=== PATIENT | female | born 1960 | race Hispanic/Latino ===

== ENCOUNTER 2017-03-02 22:26 | Emergency (ER) | payer MEDICAID ==
[2017-03-02 22:27] VITALS: BMI 30.2
[2017-03-03 00:28] VITALS: RESP 18
--- NOTE | 2017-03-03 00:39 | ED PDOC ---
Arrival/HPI <Mina Lovell - Last Filed: 03/03/17 03:45> - General Historian: Patient - History of Present Illness Time/Duration: > month Symptom Onset: Gradual Symptom Course: Unchanged Quality: Aching <Patricia Cheung - Last Filed: 03/03/17 04:51> - General Chief Complaint: Medical Clearance Time Seen by Provider: 03/03/17 00:21 - History of Present Illness Narrative History of Present Illness (Text): 03/03/17 00:42 56 yo F w h/o fibromyalgia presents to ER with 25-day h/o diffuse body aches and "another fibromyalgia flareup." Patient states she has been having diffuse body pain for the past 25 days, has had meds increased by her PMD, has been getting cortisone shots with minimal improvement. Patient c/o the hospital gown feeling like "a thousand pounds" on her body. She states "everything hurts" but denies CP, SOB, abd pain, n/v/d/c, fevers, chills, WEEMS, pleurisy, rashes, joint pains. Admits to diffuse body pain and inability sleep at night. She is speaking in full sentences and observed walking without difficulty. (Patricia Cheung) Past Medical History - Provider Review Nursing Documentation Reviewed: Yes - Travel History Have you recently traveled outside [place] w/in the past 3 mons?: No - Infectious Disease Hx of Infectious Diseases: None - Tetanus Immunization Tetanus Immunization: Unknown - Reproductive Menopause: Yes - Cardiac Hx Cardiac Disorders: No Hx Pacemaker: No - Pulmonary Hx Respiratory Disorders: Yes Hx Asthma: Yes Hx Bronchitis: Yes Hx Chronic Obstructive Pulmonary Disease (COPD): Yes Hx Emphysema: Yes - Neurological Hx Migraine: Yes Hx Paralysis: No Other/Comment: fibromyalgia - HEENT Hx Blind: Yes (right eye prosthesis) - Renal Hx Kidney Stones: Yes - Endocrine/Metabolic Hx Endocrine Disorders: Yes Other/Comment: fibromyalgia - Hematological/Oncological Hx Blood Disorders: No Hx Blood Transfusions: No Hx Blood Transfusion Reaction: No - Integumentary Hx Dermatological Disorder: No - Musculoskeletal/Rheumatological Hx Musculoskeletal Disorders: Yes - Gastrointestinal Hx Gastrointestinal Disorders: Yes (colitis) Hx Diverticulitis: Yes - Genitourinary/Gynecological Other/Comment: r lumpectomy 2007 - Psychiatric Hx Anxiety: Yes Hx Emotional Abuse: No Hx Physical Abuse: No Hx Substance Use: Yes (PAST ABUSE(RECOVERING X 18 YRS)) - Surgical History Hx Appendectomy: Yes Hx Cholecystectomy: Yes Hx Orthopedic Surgery: Yes - Anesthesia Hx Anesthesia Reactions: Yes (difficulty waking) Hx Malignant Hyperthermia: No - Suicidal Assessment Feels Threatened In Home Enviroment: No <Patricia Cheung - Last Filed: 03/03/17 04:51> Family/Social History - Physician Review Nursing Documentation Reviewed: Yes Family/Social History: CVA/TIA, Diabetes, Hypertension, CAD/SD Smoking Status: Former Smoker Hx Alcohol Use: Yes (PAST ETOH(RECOVERING X 18 YRS)) Hx Substance Use: Yes (PAST ABUSE(RECOVERING X 18 YRS)) Hx Substance Use Treatment: No <Patricia Cheung - Last Filed: 03/03/17 04:51> Allergies/Home Meds <Mina Lovell - Last Filed: 03/03/17 03:45> <Patricia Cheung - Last Filed: 03/03/17 04:51> Allergies/Adverse Reactions: Allergies aspirin Allergy (Severe, Verified 03/03/17 00:26) GI BLEED PT STATES NO ALLERGY TO PERCOCET-THIS WAS HER DRUG OF CHOICE WHEN SHE WAS USING AND WILL NOT TAKE THIS MED. bupropion HCl [From Wellbutrin] Allergy (Severe, Verified 03/03/17 00:26) ANAPHYLAXIS coconut Allergy (Severe, Verified 03/03/17 00:26) ANAPHYLAXIS codeine Allergy (Severe, Verified 03/03/17 00:26) ANAPHYLAXIS latex Allergy (Severe, Verified 03/03/17 00:26) SWELLING lorazepam [From Ativan] Allergy (Severe, Verified 03/03/17 00:26) ANAPHYLAXIS hyperactivity/"JUST FEELS DIFFERENT" morphine Allergy (Severe, Verified 03/03/17 00:26) ANAPHYLAXIS Penicillins Allergy (Severe, Verified 03/03/17 00:26) SWELLING Sulfa (Sulfonamide Antibiotics) Allergy (Severe, Verified 03/03/17 00:26) ANAPHYLAXIS theophylline Allergy (Severe, Verified 03/03/17 00:26) ANAPHYLAXIS acetaminophen [From Percocet] Adverse Reaction (Verified 03/03/17 00:26) FATIGUE oxycodone HCl [From Percocet] Adverse Reaction (Verified 03/03/17 00:26) FATIGUE Home Medications: Home Meds Medication Instructions Recorded Confirmed Alprazolam [Xanax] 2 mg PO HS 05/25/16 03/03/17 Furosemide [Lasix] 40 mg PO BID 05/25/16 03/03/17 HYDROmorphone [Dilaudid] 8 mg PO QID 05/25/16 03/03/17 Albuterol HFA [Ventolin HFA 90 2 puff IH BID 10/14/16 10/19/16 mcg/actuation (8 g)] Mometasone/Formoterol [Dulera 100 2 puff IH BID 10/14/16 03/03/17 Mcg/5 Mcg Inhaler] Sertraline [Zoloft] 25 mg PO HS 03/03/17 03/03/17 Review of Systems - Physician Review All systems were reviewed & negative as marked: Yes - Review of Systems Constitutional: absent: Fatigue, Fevers Eyes: absent: Vision Changes, Photophobia, Eye Pain ENT: absent: Rhinorrhea Respiratory: absent: SOB, Cough, Sputum Cardiovascular: absent: Chest Pain, Palpitations, Edema, Calf Pain, WEEMS Gastrointestinal: absent: Abdominal Pain, Diarrhea, Nausea, Vomiting Genitourinary Female: absent: Dysuria, Frequency Musculoskeletal: Arthralgias, Myalgias Skin: absent: Rash, Skin Lesions Neurological: absent: Headache, Dizziness, Focal Weakness <Patricia Cheung - Last Filed: 03/03/17 04:51> Physical Exam Vital Signs Reviewed: Yes Temperature: Afebrile Blood Pressure: Hypertensive Pulse: Regular Respiratory Rate: Normal Appearance: Positive for: Well-Appearing, Non-Toxic, Comfortable Pain Distress: None Mental Status: Positive for: Alert and Oriented X 3 - Systems Exam Head: Present: Atraumatic, Normocephalic Pupils: Present: Other (right eye prosthesis) Conjunctiva: No: Icteric Mouth: Present: Moist Mucous Membranes Neck: Present: Normal Range of Motion. No: Meningeal Signs, JVD Respiratory/Chest: Present: Clear to Auscultation, Good Air Exchange. No: Respiratory Distress, Accessory Muscle Use, Wheezes, Rhonchi Cardiovascular: Present: Regular Rate and Rhythm, Normal S1, S2. No: Murmurs Abdomen: Present: Normal Bowel Sounds. No: Tenderness, Distention, Peritoneal Signs, Rebound, Guarding Back: Present: Normal Inspection. No: CVA Tenderness, Midline Tenderness, Paraspinal Tenderness Upper Extremity: Present: Normal Inspection. No: Cyanosis, Edema Lower Extremity: Present: Normal Inspection. No: Edema, CALF TENDERNESS, Cyanosis Neurological: Present: GCS=15, CN II-XII Intact, Speech Normal, Gait Normal Skin: Present: Warm, Dry, Normal Color. No: Rashes, Diaphoretic Psychiatric: Present: Alert, Oriented x 3, Other (drug-seeking behavior) <Patricia Cheung - Last Filed: 03/03/17 04:51> Vital Signs Temp Pulse Resp BP Pulse Ox 03/03/17 04:19 97.7 F 81 18 146/81 98 03/03/17 00:27 97.4 F L 76 18 159/90 H 99 Medical Decision Making <Mina Lovell - Last Filed: 03/03/17 03:45> Re-evaluation Time: 03:50 Reassessment Condition: Improved <Patricia Cheung - Last Filed: 03/03/17 04:51> ED Course and Treatment: Impression: Pt seen and evaluated with medical care evaluation specialist. Pt, whose past medical history inclydes fibromyalgia, presented for difusse body aches with associated discomfort. Aware and agree with HPI, clinical findings, plan, and management. Differential Diagnosis include but are not limited to: Plan: -- Toradol -- Tylenol -- Reassess and disposition Progress Notes: (Mina Lovell) 03/03/17 00:53 56 yo F with h/o fibromyalgia presents with diffuse body aches and pain. PO tylenol. IM Toradol. 03/03/17 01:03 Patient refuses PO tylenol. Requests IV benadryl. Explained there is no clinical indication for Benadryl. Patient refuses PO Toradol, states "it's like tic tacs," agreeable to IM Toradol. 03/03/17 03:48 Patient states she is feeling slightly better. 03/03/17 04:35 Patient states she is feeling better, denies any specific complaints at this time. Discussed need to followup with PMD, continue home meds. Patient expresses understanding. 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 / has examined the patient and agrees with the treatment plan. <Mina Lovell - Last Filed: 03/03/17 03:45> Disposition/Present on Arrival <Mina Lovell - Last Filed: 03/03/17 03:45> - Present on Arrival Any Indicators Present on Arrival: No History of DVT/PE: No History of Uncontrolled Diabetes: No Urinary Catheter: No History of Decub. Ulcer: No History Surgical Site Infection Following: None - Disposition Have Diagnosis and Disposition been Completed?: Yes Disposition Time: 04:30 Patient Plan: Discharge <Patricia Cheung - Last Filed: 03/03/17 04:51> - Disposition Diagnosis: Fibromyalgia Disposition: HOME/ ROUTINE Patient Problems: Current Active Problems Problem Status Diagnosed Asthmatic bronchitis Acute Fibromyalgia Acute Joint pain Acute Condition: STABLE Discharge Instructions (ExitCare): Fibromyalgia (ED), Chronic Pain (ED) Print Language: [place] Additional Instructions: Please followup with your primary care physician in 1-3 days. Continue your home medications. Referrals: Juan Meier MD [Family Provider] - Follow up with primary
[2017-03-03 04:21] VITALS: BP 146/81; PULSE 81; TEMP 97.7; O2SAT 98
== END 2017-03-03 05:00 | disposition home or self-care (01) ==
LOC: ED 22:26 → MERGE 22:26 → ED 03-03 05:00
DX: M79.7 Fibromyalgia (principal)
CPT/HCPCS: 96372; 99282; J1885

== ENCOUNTER 2017-03-12 22:47 | Emergency (ER) | payer MEDICAID ==
[2017-03-12 22:47] VITALS: BMI 30.2
[2017-03-12 23:07] VITALS: TEMP 98
--- NOTE | 2017-03-12 23:13 | ED PDOC ---
Arrival/HPI - General Chief Complaint: Shortness Of Breath Time Seen by Provider: 03/12/17 22:49 Historian: Patient - History of Present Illness Narrative History of Present Illness (Text): 03/12/17 23:13 Debi Matute is a 56 year old female, whose past medical history includes COPD, substance abuse, asthma, emphysema, migraines, and fibromyalgia, who presents to the Emergency department complaining of bilateral lower extremity swelling for the past 3 days. Patient states she regularly takes Lasix. Patient also reports shortness of breath since 17:30 tonight. Patient denies any fever, chills, chest pain, nausea, vomiting, diarrhea, urinary symptoms, back pain, neck pain, headache, dizziness, or any other complaints. Symptom Onset: Gradual Symptom Course: Unchanged Activities at Onset: Rest, Light Modifying Factors (Text): none Context: Home Past Medical History - Provider Review Nursing Documentation Reviewed: Yes - Infectious Disease Hx of Infectious Diseases: None - Tetanus Immunization Tetanus Immunization: Unknown - Cardiac Hx Cardiac Disorders: No Hx Pacemaker: No - Pulmonary Hx Respiratory Disorders: Yes Hx Asthma: Yes Hx Bronchitis: Yes Hx Chronic Obstructive Pulmonary Disease (COPD): Yes Hx Emphysema: Yes - Neurological Hx Migraine: Yes Hx Paralysis: No Other/Comment: fibromyalgia - HEENT Hx Blind: Yes (right eye prosthesis) - Renal Hx Kidney Stones: Yes - Endocrine/Metabolic Hx Endocrine Disorders: Yes Other/Comment: fibromyalgia - Hematological/Oncological Hx Blood Disorders: No Hx Blood Transfusions: No Hx Blood Transfusion Reaction: No - Integumentary Hx Dermatological Disorder: No - Musculoskeletal/Rheumatological Hx Musculoskeletal Disorders: Yes - Gastrointestinal Hx Gastrointestinal Disorders: Yes (colitis) Hx Diverticulitis: Yes - Genitourinary/Gynecological Other/Comment: r lumpectomy 2006 - Psychiatric Hx Anxiety: Yes Hx Emotional Abuse: No Hx Physical Abuse: No Hx Substance Use: Yes (PAST ABUSE(RECOVERING X 18 YRS)) - Surgical History Hx Appendectomy: Yes Hx Cholecystectomy: Yes Hx Orthopedic Surgery: Yes - Anesthesia Hx Anesthesia Reactions: Yes (difficulty waking) Hx Malignant Hyperthermia: No - Suicidal Assessment Feels Threatened In Home Enviroment: No Family/Social History - Physician Review Nursing Documentation Reviewed: Yes Family/Social History: No Known Family HX Smoking Status: Former Smoker Hx Alcohol Use: Yes (PAST ETOH(RECOVERING X 18 YRS)) Hx Substance Use: Yes (PAST ABUSE(RECOVERING X 18 YRS)) Hx Substance Use Treatment: No Allergies/Home Meds Allergies/Adverse Reactions: Allergies aspirin Allergy (Severe, Verified 03/03/17 00:26) GI BLEED PT STATES NO ALLERGY TO PERCOCET-THIS WAS HER DRUG OF CHOICE WHEN SHE WAS USING AND WILL NOT TAKE THIS MED. bupropion HCl [From Wellbutrin] Allergy (Severe, Verified 03/03/17 00:26) ANAPHYLAXIS coconut Allergy (Severe, Verified 03/03/17 00:26) ANAPHYLAXIS codeine Allergy (Severe, Verified 03/03/17 00:26) ANAPHYLAXIS latex Allergy (Severe, Verified 03/03/17 00:26) SWELLING lorazepam [From Ativan] Allergy (Severe, Verified 03/03/17 00:26) ANAPHYLAXIS hyperactivity/"JUST FEELS DIFFERENT" morphine Allergy (Severe, Verified 03/03/17 00:26) ANAPHYLAXIS Penicillins Allergy (Severe, Verified 03/03/17 00:26) SWELLING Sulfa (Sulfonamide Antibiotics) Allergy (Severe, Verified 03/03/17 00:26) ANAPHYLAXIS theophylline Allergy (Severe, Verified 03/03/17 00:26) ANAPHYLAXIS acetaminophen [From Percocet] Adverse Reaction (Verified 03/03/17 00:26) FATIGUE oxycodone HCl [From Percocet] Adverse Reaction (Verified 03/03/17 00:26) FATIGUE Home Medications: Home Meds Medication Instructions Recorded Confirmed Alprazolam [Xanax] 2 mg PO HS 05/25/16 03/03/17 Furosemide [Lasix] 40 mg PO BID 05/25/16 03/03/17 HYDROmorphone [Dilaudid] 8 mg PO QID 05/25/16 03/03/17 Albuterol HFA [Ventolin HFA 90 2 puff IH BID 10/14/16 10/19/16 mcg/actuation (8 g)] Mometasone/Formoterol [Dulera 100 2 puff IH BID 10/14/16 03/03/17 Mcg/5 Mcg Inhaler] Sertraline [Zoloft] 25 mg PO HS 03/03/17 03/03/17 Review of Systems - Physician Review All systems were reviewed & negative as marked: Yes - Review of Systems Constitutional: Normal. absent: Fevers Eyes: Normal ENT: Normal Respiratory: SOB Cardiovascular: Normal. absent: Chest Pain Gastrointestinal: Normal. absent: Abdominal Pain, Diarrhea, Nausea, Vomiting Genitourinary Female: Normal. absent: Dysuria, Frequency, Hematuria, Urine Output Changes Musculoskeletal: Other (+bilateral lower extremity swelling). absent: Back Pain , Neck Pain Skin: Normal. absent: Rash Neurological: Normal. absent: Headache, Dizziness Endocrine: Normal Hemo/Lymphatic: Normal Psychiatric: Normal Physical Exam Vital Signs Reviewed: Yes Vital Signs Temp Pulse Resp BP Pulse Ox 03/13/17 01:09 83 16 123/86 97 03/12/17 23:50 87 18 135/87 97 03/12/17 23:20 18 95 03/12/17 23:06 98 F 90 16 141/91 H 97 Temperature: Afebrile Blood Pressure: Normal Pulse: Regular Respiratory Rate: Normal Appearance: Positive for: Well-Appearing, Non-Toxic, Comfortable Pain Distress: None Mental Status: Positive for: Alert and Oriented X 3 - Systems Exam Head: Present: Atraumatic, Normocephalic Pupils: Present: PERRL Extroacular Muscles: Present: EOMI Conjunctiva: Present: Normal Mouth: Present: Moist Mucous Membranes Pharnyx: Present: Normal Neck: Present: Normal Range of Motion Respiratory/Chest: Present: Good Air Exchange, Wheezes. No: Respiratory Distress, Accessory Muscle Use Cardiovascular: Present: Regular Rate and Rhythm, Normal S1, S2. No: Murmurs Abdomen: Present: Normal Bowel Sounds. No: Tenderness, Distention, Peritoneal Signs Back: Present: Normal Inspection Upper Extremity: Present: Normal Inspection. No: Cyanosis, Edema Lower Extremity: Present: Normal Inspection. No: Edema Neurological: Present: GCS=15, CN II-XII Intact, Speech Normal, Motor Func Grossly Intact, Normal Sensory Function Skin: Present: Warm, Dry, Normal Color. No: Rashes Psychiatric: Present: Alert, Oriented x 3, Normal Insight, Normal Concentration Medical Decision Making ED Course and Treatment: 03/12/17 23:13 Impression: 56 year old female complaining of bilateral lower extremity swelling and shortness of breath Plan: -- EKG -- Chest X-ray -- Labs, cardiac enzymes, BNP -- US Duplex Lower Extremities -- Duoneb -- Reassess and disposition Prior Visits: Notes and results from previous visits were reviewed. Progress Notes: Reviewed EKG, NSR at [address]pm[address] Non-specific ST/T wave changes. 03/13/17 00:36 Reviewed sono, US Duplex Lower Extremities show no evidence of DVT. 03/13/17 00:48 Reviewed radiology, Chest X-ray shows no active disease. Labs within normal limits. 03/13/17 00:59 On re-evaluation, the patient feels better and is in no acute distress. I have discussed the results and plan with the patient, who expresses understanding. Patient in agreement with plan to discharged home. Patient is stable for discharge. Patient was instructed to follow up with physician/clinic in 1-2 days or return if symptoms worsen or new concerning symptoms arise. - Lab Interpretations Lab Results: 03/12/17 23:20 03/12/17 23:20 Lab Results 03/12/17 23:20: WBC 5.7, RBC 3.85, Hgb 11.8 L, Hct 34.9 L, MCV 90.6, MCH 30.6, MCHC 33.8, RDW 12.6, Plt Count 221, MPV 10.6 03/12/17 23:20: Sodium 138, Potassium 3.6, Chloride 102, Carbon Dioxide 27, Anion Gap 13, BUN 18, Creatinine 0.9, Est GFR ( Amer) > 60, Est GFR (Non- Af Amer) > 60, Random Glucose 96, Calcium 8.8, Total Bilirubin 0.5, AST 63 H, ALT 74 H, Alkaline Phosphatase 96, Lactate Dehydrogenase 505, Total Creatine Kinase 104, Troponin I < 0.01, NT-Pro-B Natriuret Pep 66.6, Total Protein 6.9, Albumin 3.8, Globulin 3.0, Albumin/Globulin Ratio 1.3 03/12/17 23:20: PT 10.2, INR 0.94, APTT 28.7 I have reviewed the lab results: Yes - RAD Interpretation Radiology Orders: 03/12/17 23:14 CHEST PORTABLE [RAD] Stat 03/12/17 23:24 DUPLEX LOWER EXTRM VEIN BILAT [US] Stat Land Commissioner: ED Physician - EKG Interpretation Interpreted by ED Physician: Yes Type: 12 lead EKG - Medication Orders Current Medication Orders: Discontinued Medications Albuterol/Ipratropium (Duoneb 3 Mg/0.5 Mg (3 Ml) Ud) 3 ml IH ONCE STA Stop: 03/12/17 23:16 Last Admin: 03/12/17 23:17 Dose: 3 ml Furosemide (Lasix) 20 mg IVP ONCE ONE Stop: 03/13/17 00:58 Potassium Chloride (Potassium Chloride Oral Soln) 20 meq PO STAT STA Stop: 03/13/17 01:10 - Scribe Statement The provider has reviewed the documentation as recorded by the Joseline Campa Provider Attestation: All medical record entries made by the Ellaibe were at my direction and personally dictated by me. I have reviewed the chart and agree that the record accurately reflects my personal performance of the history, physical exam, medical decision making, and the department course for this patient. I have also personally directed, reviewed, and agree with the discharge instructions and disposition. Disposition/Present on Arrival - Present on Arrival Any Indicators Present on Arrival: No History of DVT/PE: No History of Uncontrolled Diabetes: No Urinary Catheter: No History of Decub. Ulcer: No History Surgical Site Infection Following: None - Disposition Have Diagnosis and Disposition been Completed?: Yes Diagnosis: COPD (chronic obstructive pulmonary disease) Disposition: HOME/ ROUTINE Disposition Time: 00:59 Patient Plan: Discharge Patient Problems: Current Active Problems Problem Status Onset COPD (chronic obstructive pulmonary disease) Acute Condition: GOOD Additional Instructions: Take meds as prescribed/follow up with your doctor this week Prescriptions: predniSONE [Prednisone] 40 mg PO DAILY #10 tab Albuterol HFA [Ventolin HFA 90 mcg/actuation (8 g)] 2 puff IH [id number] PRN #1 puff PRN Reason: Wheezing Referrals: Juan Meier MD [Primary Care Provider] - Follow up with primary
[2017-03-12] MEDS ORDERED: Albuterol-Ipratrop 3 mg / 0.5 (3 ml) UD IH STA (23:15)
[2017-03-12 23:33] LABS: HEMATOCRIT 34.9 % (36.0-48.0); MEAN CELL VOLUME 90.6 fL (80.0-105.0); MEAN CORPUSCULAR HEMOGLOBIN 30.6 pg (25.0-35.0); MEAN CORPUSCULAR HGB CONC 33.8 g/dl (31.0-37.0); MEAN PLATELET VOLUME 10.6 fl (7.0-11.0); RED CELL DISTRIBUTION WIDTH 12.6 % (11.5-14.5); WHITE BLOOD COUNT 5.7 10^3/ul (4.5-11.0)
[2017-03-12 23:43] LABS: ALB/GLOB RATIO 1.3 (1.1-1.8); ALKALINE PHOSPHATASE 96 U/L (38-133); ALT/SGPT 74 U/L (7-56); AST/SGOT 63 U/L (15-39); BILIRUBIN,TOTAL 0.5 mg/dL (0.2-1.3); BLOOD UREA NITROGEN 18 mg/dL (7-21); CALCIUM 8.8 mg/dL (8.4-10.5); CARBON DIOXIDE 27 mmol/L (21-33); CHLORIDE 102 mmol/L (98-107); GFR AFRICAN-AMERICAN > 60; GLUCOSE,RANDOM 96 mg/dL (70-110); INR 0.94 (0.93-1.08); PARTIAL THROMBOPLASTIN TIME 28.7 Seconds (23.7-30.8); POTASSIUM 3.6 mmol/L (3.6-5.0); SODIUM 138 mmol/L (132-148); TOTAL PROTEIN 6.9 g/dL (5.8-8.3)
[2017-03-12 23:55] LABS: TROPONIN I < 0.01 ng/mL
[2017-03-13 00:50] VITALS: O2SAT 97
[2017-03-13] MEDS ORDERED: Potassium Chloride 20 mEq ER Tab PO STA (00:58)
[2017-03-13 01:09] VITALS: BP 123/86; PULSE 83; RESP 16
[2017-03-13] MEDS ORDERED: Potassium Chloride 20 mEq/15 ml LIQ UD PO STA (01:09)
--- NOTE | 2017-03-13 13:32 | CARD ---
APPROVED REPORT EKG Measurement Heart [id number] <Conclusion> Normal sinus rhythm RSR' or QR pattern in V1 suggests right ventricular conduction delay Borderline ECG
--- NOTE | 2017-03-13 16:49 | RAD ---
HISTORY: sob COMPARISON: 11/27/2016 FINDINGS: LUNGS: Poor inspiration with low lung volumes, crowded bronchovascular markings and mild bibasilar atelectasis PLEURA: No significant pleural effusion identified, no pneumothorax apparent. CARDIOVASCULAR: Mild cardiomegaly. OSSEOUS STRUCTURES: No significant abnormalities. VISUALIZED UPPER ABDOMEN: Normal. OTHER FINDINGS: No change right IJ central line. IMPRESSION: Poor inspiration with low lung volumes, crowded bronchovascular markings and mild bibasilar atelectasis
--- NOTE | 2017-03-15 08:22 | US ---
HISTORY: Leg pain and swelling. Evaluate for DVT PHYSICIAN(S): Art Fontenot MD. TECHNIQUE: Duplex sonography and color-flow Doppler with graded compression were used to evaluate the deep venous systems of both lower extremities. FINDINGS: The visualized deep venous systems of both lower extremities are sonographically normal and compressible. Normal wave forms and augmentation are seen. There is no sonographic evidence for deep venous thrombosis in the visualized segments of both lower extremities. IMPRESSION: No sonographic evidence for deep venous thrombosis in the visualized segments of both lower extremities.
== END 2017-03-13 01:36 | disposition home or self-care (01) ==
LOC: ED 22:47 → MERGE 22:47 → ED 03-13 01:36
DX: J44.9 Chronic obstructive pulmonary disease, unspecified (principal); M79.7 Fibromyalgia; Z87.891 Personal history of nicotine dependence
CPT/HCPCS: 71010; 80053; 82550; 83615; 83880; 84484; 85027; 85610; 85730; 93005; 93970; 96374; 99284; J1940

== ENCOUNTER 2017-05-23 10:16 | Emergency (ER) | payer MEDICAID ==
[2017-05-23 10:18] VITALS: BMI 30.2
[2017-05-23 10:24] VITALS: TEMP 97.9; O2SAT 99
[2017-05-23] MEDS ORDERED: Sodium Chloride 0.9% 1,000 ML IV STA (11:08)
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
[2017-05-23 11:32] LABS: BASO # 0.01 K/mm3 (0.0-2.0); BASO % 0.2 % (0.0-3.0); EOS # 0.1 (0.0-0.7); GRAN # 2.67 (1.4-6.5); GRAN % 54.1 % (50.0-68.0); HEMOGLOBIN 12.7 gm/dL (12.0-16.0); LYMPH # 1.6 (1.2-3.4); MEAN CELL VOLUME 89.9 fL (80.0-105.0); MEAN CORPUSCULAR HEMOGLOBIN 30.5 pg (25.0-35.0); MEAN CORPUSCULAR HGB CONC 33.9 g/dl (31.0-37.0); MEAN PLATELET VOLUME 10.5 fl (7.0-11.0); MONO # 0.6 (0.1-0.6); MONO % 11.7 % (1.0-6.0); PLATELET COUNT 226 10^3/uL (120.0-450.0); RBC 4.17 10^6/uL (3.5-6.1); WHITE BLOOD COUNT 4.9 10^3/ul (4.5-11.0)
[2017-05-23 11:38] LABS: ALB/GLOB RATIO 1.3 (1.1-1.8); ALBUMIN 4.2 g/dL (3.0-4.8); ALT/SGPT 39 U/L (7-56); AST/SGOT 24 U/L (15-39); BLOOD UREA NITROGEN 15 mg/dL (7-21); GFR AFRICAN-AMERICAN > 60; GFR NON-AFRICAN AMERICAN > 60
--- NOTE | 2017-05-23 11:41 | RAD ---
HISTORY: cough, dyspnea COMPARISON: 05/14/2017 FINDINGS: LUNGS: No active pulmonary disease. PLEURA: No significant pleural effusion identified, no pneumothorax apparent. CARDIOVASCULAR: Normal. OSSEOUS STRUCTURES: No significant abnormalities. VISUALIZED UPPER ABDOMEN: Normal. OTHER FINDINGS: Right-sided Port-A-Cath IMPRESSION: No active disease.
[2017-05-23 11:47] LABS: B-TYPE NATRIURETIC PEPTIDE 52.8 pg/mL (0-450)
[2017-05-23 12:23] LABS: PH,URINE 6.5 (4.7-8.0); URINE BILIRUBIN NEGATIVE (NEGATIVE); URINE BLOOD TRACE-INTACT (NEGATIVE); URINE GLUCOSE (UA) NEGATIVE (NEGATIVE); URINE LEUKOCYTE ESTERASE TRACE Leu/uL (NEGATIVE); URINE NITRATE NEGATIVE (NEGATIVE); URINE PROTEIN NEGATIVE mg/dL (<30 mg/dL); URINE UROBILINOGEN 0.2 E.U./dL (<1 E.U./dL)
[2017-05-23 12:45] LABS: URINE APPEARANCE CLEAR (CLEAR); URINE COLOR YELLOW (YELLOW)
[2017-05-23 12:56] LABS: URINE BACTERIA TRACE (NEG)
[2017-05-23 13:47] VITALS: BP 138/81; PULSE 84; RESP 16
== END 2017-05-23 14:30 | disposition home or self-care (01) ==
LOC: ED 10:16
DX: M79.7 Fibromyalgia (principal); M79.1 Myalgia
CPT/HCPCS: 71010; 80053; 81001; 82550; 83880; 85025; 87086; 96360; 99284; J7040

== ENCOUNTER 2018-12-12 07:41 | Emergency (ER) | payer SELFPAY ==
[2018-12-12 07:42] VITALS: BMI 30.2
[2018-12-12 08:36] VITALS: RESP 18
[2018-12-12] MEDS ORDERED: Sodium Chloride 0.9% 1,000 ML IV STA (09:04)
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
[2018-12-12 09:52] LABS: BASO # 0.01 K/mm3 (0.0-2.0); BASO % 0.2 % (0.0-3.0); EOS # 0.1 (0.0-0.7); EOS % 1.2 % (1.5-5.0); HEMOGLOBIN 12.6 g/dL (12.0-16.0); LYMPH # 2.2 (1.2-3.4); MEAN CELL VOLUME 90.1 fl (80.0-105.0); MEAN CORPUSCULAR HEMOGLOBIN 29.6 pg (25.0-35.0); MEAN CORPUSCULAR HGB CONC 32.8 g/dl (31.0-37.0); MEAN PLATELET VOLUME 10.8 fl (7.0-11.0); MONO # 0.8 (0.1-0.6); MONO % 14.1 % (1.0-6.0); RBC 4.26 10^6/uL (3.5-6.1); RED CELL DISTRIBUTION WIDTH 13.4 % (11.5-14.5); WHITE BLOOD COUNT 5.8 10^3/uL (4.5-11.0)
[2018-12-12 10:04] LABS: ALB/GLOB RATIO 1.1 (1.1-1.8); ALBUMIN 3.1 g/dL (3.0-4.8); ALT/SGPT 33 U/L (7-56); AST/SGOT 19 U/L (14-36); BLOOD UREA NITROGEN 13 mg/dL (7-21); CALCIUM 7.3 mg/dL (8.4-10.5); GFR NON-AFRICAN AMERICAN > 60; LIPASE 32 U/L (23-300)
[2018-12-12 10:15] LABS: TROPONIN I < 0.01 ng/mL
[2018-12-12] MEDS ORDERED: Iohexol 350 MG/100 ML VIAL ONE (10:17)
--- NOTE | 2018-12-12 11:31 | CT ---
Date of service: 12/12/2018 PROCEDURE: CT Abdomen and Pelvis with contrast HISTORY: diffuse abdominal pain COMPARISON: None. TECHNIQUE: Following the intravenous administration of iodinated contrast material, a CT examination of the abdomen and pelvis performed from the domes of the diaphragms to the symphysis pubis with reformatted datasets provided in axial, sagittal and coronal planes. Oral contrast was not administered as per referring physician request. Coronal and sagittal reformats were generated. Contrast dose: Omnipaque 350, 96 cc Radiation dose: Total exam DLP = 799.74 mGy-cm. This CT exam was performed using one or more of the following dose reduction techniques: Automated exposure control, adjustment of the mA and/or kV according to patient size, and/or use of iterative reconstruction technique. FINDINGS: LOWER THORAX: Cardiomegaly. Small hiatal hernia. LIVER: Unremarkable. No gross lesion or ductal dilatation. GALLBLADDER AND BILE DUCTS: Unremarkable. PANCREAS: Unremarkable. No gross lesion or ductal dilatation. SPLEEN: Unremarkable. ADRENALS: Unremarkable. No mass. KIDNEYS AND URETERS: No obstructive uropathy or definite solid mass bilaterally. 2.8 cm simple cyst medial upper midpole left kidney with a tiny lucency under 1 cm size at the upper pole right renal cortex too small to characterize but likely reflecting an additional small cyst. No radiodense urolithiasis appreciable bilaterally or perinephric reaction. VASCULATURE: Unremarkable. No aortic aneurysm. No aortic atherosclerotic calcification or mural plaque present. BOWEL: No bowel obstruction, pericolic or perienteric reactive changes appreciated. Left colonic diverticular change are appreciated concentrated at the sigmoid segment. Sigmoid matthews appear thickened, potentially on a chronic basis due to diverticulitis. However there is a segment of mid to distal cyst sigmoid colon abutting fluid posterior to the urinary bladder suspicious for active diverticulitis. A moderate diverticulum may be present within fluid here. APPENDIX: Not identified. Clinically correlate as to potential prior appendectomy. PERITONEUM: Unremarkable. No free fluid. No free air. LYMPH NODES: Unremarkable. No enlarged lymph nodes. BLADDER: Urinary bladder is decompressed but somewhat thick-walled. 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 REPRODUCTIVE: Prior hysterectomy evident. BONES: No acute fracture. OTHER FINDINGS: None. IMPRESSION: 1. Left colonic diverticular changes are scattered but concentrated at the sigmoid segment where thickening is appreciated. Mid sigmoid diverticulitis is in question although cystitis is difficult to exclude. Limited fluid is identified in the pelvis without overt abscess or free intra peritoneal gas collection. Further clinical correlation is recommended. 2. No acute abdominal findings appreciable. 3. Left renal cyst. Small lucency upper pole right kidney statistically likely reflects an additional tiny cyst but is too small to characterize. No obstructive uropathy bilaterally.
--- NOTE | 2018-12-12 11:33 | CARD ---
APPROVED REPORT Date of service: 12/12/2018 EKG Measurement Heart [id number] <Conclusion> Normal sinus rhythm RSR' Pattern V1. Nonspecific ST and T wave abnormality
--- NOTE | 2018-12-12 12:00 | US ---
Date of service: 12/12/2018 HISTORY: upper abdominal pain COMPARISON: Abdomen and pelvis CT with contrast 12/12/2018. TECHNIQUE: Sonographic evaluation of the abdomen. FINDINGS: LIVER: Measures 14.0 cm. Normal echogenicity of the liver parenchyma. No mass. No intrahepatic bile duct dilatation. GALLBLADDER: Unremarkable. No gallstones. COMMON BILE DUCT: Measures 3.4 mm. No stones. No dilatation. PANCREAS: Unremarkable as visualized. No mass. No ductal dilatation. RIGHT KIDNEY: Measures 11.3cm. Parenchymal lucency identified in CT at the upper pole is not seen sonographically, likely due to small size. Right kidney is unremarkable appearing throughout. LEFT KIDNEY: Measures 10.8cm. A simple cyst identified at the upper pole measuring 2.2 x 2.9 x 1.9 cm. Left kidney is otherwise unremarkable. SPLEEN: Normal in size and contour. No mass. AORTA: No aneurysmal dilatation. IVC: Unremarkable. OTHER FINDINGS: None. IMPRESSION: Small simple cyst upper pole left kidney. Small lucency seen in CT at the upper pole right kidney on 12/04/2018 is not seen sonographically, likely due to small size. Examination is otherwise unremarkable.
[2018-12-12 14:22] VITALS: O2SAT 98
[2018-12-12 15:15] VITALS: BP 118/69; PULSE 75; TEMP 97.9
== END 2018-12-12 15:30 | disposition home or self-care (01) ==
LOC: ED 07:41
DX: K57.32 Diverticulitis of large intestine without perforation or abscess without bleeding (principal); M32.9 Systemic lupus erythematosus, unspecified; J44.9 Chronic obstructive pulmonary disease, unspecified; Z87.891 Personal history of nicotine dependence; Z86.73 Personal history of transient ischemic attack (TIA), and cerebral infarction without residual deficits; M79.7 Fibromyalgia
CPT/HCPCS: 74177; 76700; 80053; 82550; 83615; 83690; 83735; 84484; 85025; 93005; 99284; J7030; Q9967

== ENCOUNTER 2019-02-01 08:46 | Emergency (ER) | payer MEDICAID, OTHER ==
[2019-02-01 08:47] VITALS: BMI 30.2
[2019-02-01] MEDS ORDERED: Sodium Chloride 0.9% 1,000 ML IV STA (09:24)
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
[2019-02-01 10:07] LABS: BASO # 0.01 K/mm3 (0.0-2.0); BASO % 0.2 % (0.0-3.0); EOS # 0.1 (0.0-0.7); HEMOGLOBIN 12.5 g/dL (12.0-16.0); LYMPH # 1.9 (1.2-3.4); LYMPH % 35.7 % (22.0-35.0); MEAN CELL VOLUME 90.5 fl (80.0-105.0); MEAN CORPUSCULAR HEMOGLOBIN 29.6 pg (25.0-35.0); MEAN CORPUSCULAR HGB CONC 32.7 g/dl (31.0-37.0); MEAN PLATELET VOLUME 10.6 fl (7.0-11.0); MONO # 0.6 (0.1-0.6); MONO % 12.2 % (1.0-6.0); RBC 4.22 10^6/uL (3.5-6.1); RED CELL DISTRIBUTION WIDTH 13.3 % (11.5-14.5); WHITE BLOOD COUNT 5.3 10^3/uL (4.5-11.0)
[2019-02-01 10:09] LABS: PH,URINE 5.5 (4.7-8.0); URINE APPEARANCE CLEAR (CLEAR); URINE BILIRUBIN NEGATIVE (NEGATIVE); URINE BLOOD MODERATE (NEGATIVE); URINE COLOR YELLOW (YELLOW); URINE GLUCOSE (UA) NEGATIVE (NEGATIVE); URINE LEUKOCYTE ESTERASE TRACE Leu/uL (NEGATIVE); URINE PROTEIN NEGATIVE mg/dL (<30 mg/dL); URINE UROBILINOGEN 0.2 E.U./dL (<1 E.U./dL)
[2019-02-01 10:12] LABS: HCG,QUALITATIVE URINE NEGATIVE (NEGATIVE)
[2019-02-01 10:17] LABS: ALB/GLOB RATIO 1.2 (1.1-1.8); ALBUMIN 4.2 g/dL (3.0-4.8); ALT/SGPT 39 U/L (7-56); AST/SGOT 45 U/L (14-36); BLOOD UREA NITROGEN 16 mg/dL (7-21); CALCIUM 9.2 mg/dL (8.4-10.5); GFR NON-AFRICAN AMERICAN > 60
--- NOTE | 2019-02-01 10:23 | RAD ---
Date of service: 02/01/2019 HISTORY: medical clearance COMPARISON: 05/23/2017 FINDINGS: LUNGS: No active pulmonary disease. PLEURA: No significant pleural effusion identified, no pneumothorax apparent. CARDIOVASCULAR: No aortic atherosclerotic calcification present. Normal cardiac size. No pulmonary vascular congestion. OSSEOUS STRUCTURES: No significant abnormalities. VISUALIZED UPPER ABDOMEN: Normal. OTHER FINDINGS: None. IMPRESSION: No active disease.
[2019-02-01 10:27] LABS: URINE BACTERIA SMALL /hpf
[2019-02-01 12:56] VITALS: BP 118/78; PULSE 75; RESP 18; TEMP 98.2; O2SAT 96
== END 2019-02-01 12:55 | disposition home or self-care (01) ==
LOC: ED 08:46
DX: N39.0 Urinary tract infection, site not specified (principal); G89.29 Other chronic pain; J44.9 Chronic obstructive pulmonary disease, unspecified; Z86.73 Personal history of transient ischemic attack (TIA), and cerebral infarction without residual deficits; Z87.891 Personal history of nicotine dependence
CPT/HCPCS: 71045; 80053; 81001; 84703; 85025; 87086; 99284; J7030